=== PATIENT | female | born 1960 | race African-American/Black ===

== ENCOUNTER 2017-03-18 13:56 | Emergency (ER) | payer SELFPAY ==
[2017-03-18] MEDS ORDERED: MORPHINE SULFATE 2 MG/ML DISP.SYRIN. IV ONE (14:30)
[2017-03-18] MEDS ORDERED: FAMOTIDINE 20 MG/2 ML VIAL IVP ONE (14:30)
[2017-03-18] MEDS ORDERED: ONDANSETRON PF 4 MG/2 ML VIAL. IV ONE (14:30)
--- NOTE | 2017-03-18 14:36 | PHYS DOC ---
Past Medical History Past Medical History: Diverticulosis Past Surgical History: No Surgical History Alcohol Use: None Drug Use: None Adult General Chief Complaint Chief Complaint: ABDOMINAL PAIN HPI HPI Patient is a 56 year old female with a history of hypertension and diverticulosis presents to the ED complaining of abdominal pain x 2 days. Describes the pain as sharp. Rates the pain as 7/10. Associated symptoms include diarrhea. No blood in stools. Similar episodes of diarrhea in the past. No recent antibiotic use. Denies chest pain, shortness of breath, dizziness, weakness, blood in stool, headache, dizziness, weakness or rash. Review of Systems Review of Systems Constitutional: Denies fever or chills [] Eyes: Denies change in visual acuity, redness, or eye pain [] HENT: Denies nasal congestion or sore throat [] Respiratory: Denies cough or shortness of breath [] Cardiovascular: No additional information not addressed in HPI [] GI: Complains of abdominal pain and diarrhea. Denies nausea, vomiting, bloody stools. [] : Denies dysuria or hematuria [] Musculoskeletal: Denies back pain or joint pain [] Integument: Denies rash or skin lesions [] Neurologic: Denies headache, focal weakness or sensory changes [] Endocrine: Denies polyuria or polydipsia [] All other systems were reviewed and found to be within normal limits, except as documented in this note. Current Medications Current Medications Current Medications Medications (Trade) Dose Ordered Sig/Gallo Start Time Stop Time Status Last Admin Dose Admin Famotidine (Pepcid Vial) 20 mg 1X ONCE 03/18/17 14:30 03/18/17 14:31 DC 03/18/17 15:07 20 MG Iohexol (Omnipaque 300 Mg/ml) 75 ml 1X ONCE 03/18/17 14:45 03/18/17 14:46 DC Morphine Sulfate 2 mg 1X ONCE 03/18/17 14:30 03/18/17 14:31 Cancel Ondansetron HCl (Zofran) 4 mg 1X ONCE 03/18/17 14:30 03/18/17 14:31 DC 03/18/17 15:04 4 MG Potassium Chloride (Klor-Con) 40 meq 1X ONCE 03/18/17 15:45 03/18/17 15:46 DC 03/18/17 16:11 40 MEQ Allergies Allergies Allergies Coded Allergies Type Severity Reaction Last Updated Verified Penicillins Allergy Mild itching 08/14/14 Yes ciprofloxacin Allergy Mild itching 08/14/14 Yes erythromycin base Allergy Mild itching 08/14/14 Yes morphine Allergy Mild itching 08/14/14 Yes Physical Exam Physical Exam Constitutional: Well developed, well nourished, no acute distress, non-toxic appearance. [] HENT: Normocephalic, atraumatic, bilateral external ears normal, oropharynx moist, no oral exudates, nose normal. [] Eyes: PERRLA, EOMI, conjunctiva normal, no discharge. [] Neck: Normal range of motion, no tenderness, supple, no stridor. [] Cardiovascular:Heart rate regular rhythm, no murmur [] Lungs & Thorax: Bilateral breath sounds clear to auscultation [] Abdomen: Bowel sounds normal, soft, MILD DIFFUSE ABDOMINAL TENDERNESS, no masses , no pulsatile masses. [] Skin: Warm, dry, no erythema, no rash. [] Back: No tenderness, no CVA tenderness. [] Extremities: No tenderness, no cyanosis, no clubbing, ROM intact, no edema. [] Neurologic: Alert and oriented X 3, normal motor function, normal sensory function, no focal deficits noted. [] Psychologic: Affect normal, judgement normal, mood normal. [] Current Patient Data Vital Signs Vital Signs Date Time Temp Pulse Resp B/P (MAP) Pulse Ox O2 Delivery O2 Flow Rate FiO2 03/18/17 16:00 92 147/77 (100) 97 Room Air 03/18/17 14:12 98.7 22 98.7 Lab Values Laboratory Tests Test 03/18/17 14:25 03/18/17 15:15 Urine Collection Type Unknown Urine Color Yellow Urine Clarity Clear Urine pH 5.5 Urine Specific [place] 1.025 Urine Protein 100 mg/dL (NEG-TRACE) Urine Glucose (UA) Negative mg/dL (NEG) Urine Ketones (Stick) >=80 mg/dL (NEG) Urine Blood Negative (NEG) Urine Nitrite Negative (NEG) Urine Bilirubin Small (NEG) Urine Urobilinogen Dipstick 0.2 mg/dL (0.2 mg/dL) Urine Leukocyte Esterase Negative (NEG) Urine RBC 0 /HPF (0-2) Urine WBC 0 /HPF (0-4) Urine Squamous Epithelial Cells Few /LPF Urine Bacteria Few /HPF (0-FEW) Urine Mucus Marked /LPF White Blood Count 6.3 x10^3/uL (4.0-11.0) Red Blood Count 4.30 x10^6/uL (3.50-5.40) Hemoglobin 12.1 g/dL (12.0-15.5) Hematocrit 37.3 % (36.0-47.0) Mean Corpuscular Volume 87 fL (79-100) Mean Corpuscular Hemoglobin 28 pg (25-35) Mean Corpuscular Hemoglobin Concent 32 g/dL (31-37) Red Cell Distribution Width 14.5 % (11.5-14.5) Platelet Count 167 x10^3/uL (140-400) Sodium Level 139 mmol/L (136-145) Potassium Level 3.2 mmol/L (3.5-5.1) L Chloride Level 103 mmol/L (98-107) Carbon Dioxide Level 24 mmol/L (21-32) Anion Gap 12 (6-14) Blood Urea Nitrogen 10 mg/dL (7-20) Creatinine 0.7 mg/dL (0.6-1.0) Estimated GFR (Cockcroft-Gault) 104.4 BUN/Creatinine Ratio 14 (6-20) Glucose Level 85 mg/dL (70-99) Calcium Level 9.4 mg/dL (8.5-10.1) Total Bilirubin 0.7 mg/dL (0.2-1.0) Aspartate Amino Transferase (AST) 20 U/L (15-37) Alanine Aminotransferase (ALT) 24 U/L (14-59) Alkaline Phosphatase 83 U/L (46-116) Total Protein 8.5 g/dL (6.4-8.2) H Albumin 3.3 g/dL (3.4-5.0) L Albumin/Globulin Ratio 0.6 (1.0-1.7) L Lipase 98 U/L (73-393) Laboratory Tests 03/18/17 15:15 Laboratory Tests 03/18/17 15:15 EKG EKG [] Radiology/Procedures Radiology/Procedures [] Course & Med Decision Making Course & Med Decision Making Pertinent Labs and Imaging studies reviewed. (See chart for details) []Discussed labs with patient. Potassium given in ED. Patient refused CT imaging. Discussed risks. Patient verbalizes understanding. States same symptoms in the past. Medications in ED improved patient's pain and symptoms. On re-examination, abdomen is soft nontender nondistended. No peritoneal signs. Tolerating PO. No reported fever. Stool culture pending. Will discharge outpatient with Imodium, Zofran and Pepcid. Discussed follow-up with GI this week. Provided contact information/education. Discussed dietary changes. Discussed reasons to return to the ED. Patient understands and agrees with plan. Dragon Disclaimer Dragon Disclaimer This electronic medical record was generated, in whole or in part, using a voice recognition dictation system. Departure Departure Impression: Primary Impression: Acute diarrhea Disposition: HOME, SELF-CARE Condition: IMPROVED Referrals: NO PCP (PCP) DAYANA COBURN MD, SCOTT S MD Patient Instructions: Diarrhea Scripts Loperamide HCl (Imodium A-D) 2 Mg Capsule 2 MG PO DAILY for DIARRHEA, #10 CAP 2 tablet now and then 1 tablet after each loose stool. Max 4 tablets in 24 hours. Prov: JONATHON WILKS 03/18/17 Ondansetron (ZOFRAN ODT) 4 Mg Tab.rapdis 1 TAB SL Q8HRS, #10 TAB Prov: JONATHON WILKS 03/18/17 Famotidine (PEPCID) 20 Mg Tablet 20 MG PO BID, #20 TAB Prov: JONATHON WILKS 03/18/17 JONATHON WILKS Mar 18, 2017 14:36
[2017-03-18 14:41] LABS: BILIRUBIN,URINE SMALL (NEG); GLUCOSE,URINE NEGATIVE (NEG); NITRITE,URINE NEGATIVE (NEG); PH,URINE 5.5; PROTEIN,URINE 100 mg/dL (NEG-TRACE); UROBILINOGEN,URINE 0.2 mg/dL (0.2 mg/dL)
[2017-03-18] MEDS ORDERED: IOHEXOL 300 MG/ML 100ML VIAL. IV ONE (14:45)
[2017-03-18 15:01] LABS: RBC,URINE 0 /HPF (0-2); WBC,URINE 0 /HPF (0-4)
[2017-03-18 15:02] LABS: BACTERIA,URINE FEW /HPF (0-FEW); SQUAMOUS EPITHELIAL CELL,UR FEW /LPF
[2017-03-18 15:18] LABS: HEMATOCRIT 37.3 % (36.0-47.0); HEMOGLOBIN 12.1 g/dL (12.0-15.5); RED BLOOD COUNT 4.3 x10^6/uL (3.50-5.40); RED CELL DISTRIBUTION WIDTH 14.5 % (11.5-14.5); WHITE BLOOD COUNT 6.3 x10^3/uL (4.0-11.0)
[2017-03-18 15:28] LABS: CALCIUM 9.4 mg/dL (8.5-10.1); CREATININE 0.7 mg/dL (0.6-1.0); GFR 104.4; POTASSIUM 3.2 mmol/L (3.5-5.1)
[2017-03-18 15:36] LABS: ALBUMIN 3.3 g/dL (3.4-5.0); ALBUMIN/GLOBULIN RATIO 0.6 (1.0-1.7); TOTAL BILIRUBIN 0.7 mg/dL (0.2-1.0); TOTAL PROTEIN 8.5 g/dL (6.4-8.2)
[2017-03-18] MEDS ORDERED: POTASSIUM CHLORIDE 20 MEQ TABLET.ER. PO ONE (15:45)
[2017-03-18 16:00] VITALS: BP 147/77
[2017-03-18] MEDS ORDERED: ONDA4TAB10 SL (16:09)
[2017-03-18] MEDS ORDERED: FAMO-63 PO (16:09)
[2017-03-18] MEDS ORDERED: LOPE2CAP88 PO (16:09)
== END 2017-03-18 16:19 | disposition home or self-care (01) ==
LOC: ER 13:56
DX: A08.8 Other specified intestinal infections (principal); I10 Essential (primary) hypertension; R10.84 Generalized abdominal pain; Z88.0 Allergy status to penicillin; Z88.1 Allergy status to other antibiotic agents; Z88.5 Allergy status to narcotic agent
CPT/HCPCS: 36415; 80053; 81001; 83690; 85027; 87045; 96374; 96375; 99284; J2405; S0028; 99285-25

== ENCOUNTER 2017-06-20 08:52 | Inpatient (IN) | payer SELFPAY ==
[2017-06-20 09:34] LABS: BILIRUBIN,URINE SMALL (NEG); CLARITY,URINE CLEAR; GLUCOSE,URINE NEGATIVE (NEG); NITRITE,URINE NEGATIVE (NEG); PH,URINE 5.5; PROTEIN,URINE >=300 mg/dL (NEG-TRACE); UROBILINOGEN,URINE 0.2 mg/dL (0.2 mg/dL)
[2017-06-20 09:41] LABS: COLOR,URINE YELLOW
[2017-06-20 09:42] LABS: BACTERIA,URINE MANY /HPF (0-FEW); SQUAMOUS EPITHELIAL CELL,UR MANY /LPF
[2017-06-20 09:44] LABS: WBC,URINE OCC /HPF (0-4)
[2017-06-20 09:45] LABS: ADD MAN DIFF? NO
[2017-06-20 09:47] LABS: BASO % 0 % (0-3); EOS # 0.1 x10^3/uL (0.0-0.7); EOS % 1 % (0-3); HEMATOCRIT 38.5 % (36.0-47.0); HEMOGLOBIN 12.8 g/dL (12.0-15.5); LYMPH % 12 % (24-48); MEAN CORPUSCULAR HEMOGLOBIN 29 pg (25-35); MEAN CORPUSCULAR HGB CONC 33 g/dL (31-37); MEAN CORPUSCULAR VOLUME 86 fL (79-100); MONO # 0.9 x10^3/uL (0.0-1.1); MONO % 11 % (0-9); NEUT # 6.5 x10^3uL (1.8-7.7); NEUT % 76 % (31-73); PLATELET COUNT 156 x10^3/uL (140-400); RED BLOOD COUNT 4.47 x10^6/uL (3.50-5.40); RED CELL DISTRIBUTION WIDTH 14.8 % (11.5-14.5); WHITE BLOOD COUNT 8.5 x10^3/uL (4.0-11.0)
[2017-06-20] MEDS: IV NORMAL SALINE 1000ML BAG 1,000 ML IV ×2 (10:25→12:38)
[2017-06-20] MEDS: ONDANSETRON PF 4 MG/2 ML VIAL. IV (10:26)
[2017-06-20] MEDS: fentaNYL PF VIAL 100 MCG/2 ML VIAL IV (10:27)
[2017-06-20 10:33] LABS: ALBUMIN 3.5 g/dL (3.4-5.0); ALK PHOS 99 U/L (46-116); ALT (SGPT) 21 U/L (14-59); ANION GAP 12 (6-14); AST (SGOT) 17 U/L (15-37); BLOOD UREA NITROGEN 17 mg/dL (7-20); CALCIUM 9.9 mg/dL (8.5-10.1); CARBON DIOXIDE 26 mmol/L (21-32); CHLORIDE 101 mmol/L (98-107); CREATININE 1.3 mg/dL (0.6-1.0); DIRECT BILIRUBIN 0.3 mg/dL (0.0-0.2); GFR 51.1; GLUCOSE 105 mg/dL (70-99); LIPASE 86 U/L (73-393); POTASSIUM 3.6 mmol/L (3.5-5.1); SODIUM 139 mmol/L (136-145); TOTAL BILIRUBIN 1.2 mg/dL (0.2-1.0); TOTAL PROTEIN 9.6 g/dL (6.4-8.2)
[2017-06-20 10:35] LABS: LACTIC ACID 1.5 mmol/L (0.4-2.0)
[2017-06-20 10:41] LABS: TROPONINI 0.138 ng/mL (0.000-0.055)
[2017-06-20] MEDS: LABETALOL 20 MG/4 ML DISP.SYRIN. IVP (11:01)
[2017-06-20] MEDS: hydrALAZINE 20 MG/ML VIAL. IVP (11:42)
[2017-06-20] MEDS ORDERED: CONTRAST GIVEN MC (11:45)
[2017-06-20] MEDS: IOHEXOL 300 MG/ML 100ML VIAL. IV (11:45)
[2017-06-20] MEDS: ASPIRIN CHEWABLE 81 MG TABLET. PO (12:38)
[2017-06-20 16:32] LABS: TROPONINI 0.119 ng/mL (0.000-0.055)
[2017-06-20] MEDS: ACETAMINOPHEN 325 MG TABLET. PO (18:36)
[2017-06-20] MEDS: PANTOPRAZOLE 40 MG TABLET.DR. PO (18:37)
[2017-06-20] MEDS: FAMOTIDINE 20 MG TABLET. PO (18:37)
[2017-06-20 22:47] LABS: TROPONINI 0.091 ng/mL (0.000-0.055)
[2017-06-21 01:23] LABS: TROPONINI 0.054 ng/mL (0.000-0.055)
[2017-06-21 06:18] LABS: ADD MAN DIFF? NO; BASO % 1 % (0-3); EOS # 0.1 x10^3/uL (0.0-0.7); EOS % 2 % (0-3); HEMATOCRIT 33.7 % (36.0-47.0); HEMOGLOBIN 11.1 g/dL (12.0-15.5); LYMPH # 1.7 x10^3/uL (1.0-4.8); LYMPH % 33 % (24-48); MEAN CORPUSCULAR HEMOGLOBIN 28 pg (25-35); MEAN CORPUSCULAR HGB CONC 33 g/dL (31-37); MEAN CORPUSCULAR VOLUME 86 fL (79-100); MONO # 0.5 x10^3/uL (0.0-1.1); MONO % 10 % (0-9); NEUT # 2.9 x10^3uL (1.8-7.7); NEUT % 54 % (31-73); PLATELET COUNT 132 x10^3/uL (140-400); RED BLOOD COUNT 3.92 x10^6/uL (3.50-5.40); RED CELL DISTRIBUTION WIDTH 14.7 % (11.5-14.5); WHITE BLOOD COUNT 5.3 x10^3/uL (4.0-11.0)
[2017-06-21] MEDS: ONDANSETRON PF 4 MG/2 ML VIAL. IV ×2 (06:41→15:44)
[2017-06-21] MEDS: fentaNYL PF VIAL 100 MCG/2 ML VIAL IV (06:42)
[2017-06-21 06:43] LABS: ANION GAP 11 (6-14); BLOOD UREA NITROGEN 11 mg/dL (7-20); CALCIUM 8.9 mg/dL (8.5-10.1); CARBON DIOXIDE 26 mmol/L (21-32); CHLORIDE 107 mmol/L (98-107); CREATININE 0.7 mg/dL (0.6-1.0); GFR 104.4; GLUCOSE 73 mg/dL (70-99); POTASSIUM 3.3 mmol/L (3.5-5.1); SODIUM 144 mmol/L (136-145)
[2017-06-21] MEDS ORDERED: hydrALAZINE 20 MG/ML VIAL. IVP (08:30)
[2017-06-21] MEDS: PANTOPRAZOLE 40 MG TABLET.DR. PO (08:40)
[2017-06-21] MEDS: hydrALAZINE 25 MG TABLET PO ×3 (08:41→22:42)
[2017-06-21] MEDS: POTASSIUM CHLORIDE 20 MEQ TABLET.ER. PO (10:20)
[2017-06-21] MEDS: MAGNESIUM HYDROXIDE 2,400 MG/30 ML ORAL.SUSP. PO (15:43)
[2017-06-21] MEDS: SENNOSIDES/DOCUSATE 8.6/50MG TABLET. PO (21:00)
[2017-06-21] MEDS: DOCUSATE SODIUM 100 MG CAPSULE. PO (21:00)
[2017-06-21] MEDS: ENOXAPARIN 40 MG/0.4 ML SYRINGE. SQ (22:42)
[2017-06-21] MEDS: LOPERAMIDE 2 MG CAPSULE PO (23:34)
[2017-06-22 03:47] LABS: ADD MAN DIFF? NO
[2017-06-22 03:59] LABS: BASO % 0 % (0-3); EOS # 0.2 x10^3/uL (0.0-0.7); EOS % 4 % (0-3); HEMATOCRIT 31.8 % (36.0-47.0); HEMOGLOBIN 10.4 g/dL (12.0-15.5); LYMPH # 1.8 x10^3/uL (1.0-4.8); LYMPH % 38 % (24-48); MEAN CORPUSCULAR HEMOGLOBIN 29 pg (25-35); MEAN CORPUSCULAR HGB CONC 33 g/dL (31-37); MEAN CORPUSCULAR VOLUME 87 fL (79-100); MONO # 0.6 x10^3/uL (0.0-1.1); MONO % 13 % (0-9); NEUT # 2.1 x10^3uL (1.8-7.7); NEUT % 45 % (31-73); PLATELET COUNT 120 x10^3/uL (140-400); RED BLOOD COUNT 3.65 x10^6/uL (3.50-5.40); RED CELL DISTRIBUTION WIDTH 14.5 % (11.5-14.5); WHITE BLOOD COUNT 4.6 x10^3/uL (4.0-11.0)
[2017-06-22 04:44] LABS: ANION GAP 7 (6-14); BLOOD UREA NITROGEN 10 mg/dL (7-20); CARBON DIOXIDE 31 mmol/L (21-32); CHLORIDE 108 mmol/L (98-107); CREATININE 0.8 mg/dL (0.6-1.0); GFR 89.5; GLUCOSE 86 mg/dL (70-99); POTASSIUM 3.6 mmol/L (3.5-5.1); SODIUM 146 mmol/L (136-145)
[2017-06-22] MEDS: DOCUSATE SODIUM 100 MG CAPSULE. PO (08:36)
[2017-06-22] MEDS: ENOXAPARIN 40 MG/0.4 ML SYRINGE. SQ (08:36)
[2017-06-22] MEDS: hydrALAZINE 25 MG TABLET PO ×2 (08:36→14:20)
[2017-06-22] MEDS: SENNOSIDES/DOCUSATE 8.6/50MG TABLET. PO (08:36)
[2017-06-22] MEDS: PANTOPRAZOLE 40 MG TABLET.DR. PO (08:36)
[2017-06-22] MEDS ORDERED: NYSTATIN TOPICAL POWDER 15GM BOTTLE. TP (14:30)
== END 2017-06-22 17:56 | disposition home or self-care (01) | DRG 682 ==
LOC: 2 SOUTH 06-21 11:20 → ER 08:52 → 1 WEST ICU 12:14
DX: N17.9 Acute kidney failure, unspecified (principal); I21.A1 Myocardial infarction type 2; E88.89 Other specified metabolic disorders; Z68.43 Body mass index [BMI] 50.0-59.9, adult; E66.01 Morbid (severe) obesity due to excess calories; N13.2 Hydronephrosis with renal and ureteral calculous obstruction; E87.6 Hypokalemia; I10 Essential (primary) hypertension; K57.90 Diverticulosis of intestine, part unspecified, without perforation or abscess without bleeding; K21.9 Gastro-esophageal reflux disease without esophagitis; Z82.49 Family history of ischemic heart disease and other diseases of the circulatory system; Z87.442 Personal history of urinary calculi; Z88.5 Allergy status to narcotic agent; Z90.710 Acquired absence of both cervix and uterus
CPT/HCPCS: 36415; 74177; 80048; 80076; 81001; 83605; 83690; 84484; 85025; 87086; 93005; 93306; 96361; 96374; 96375; 99291; 99291-25; J0360; J1650; J2405; J3010; J3490; J7030; J7050; Q9967

== ENCOUNTER 2018-05-20 14:19 | Emergency (ER) | payer SELFPAY ==
[~2018-05-20] VITALS: Ht 170.2 cm; Wt 140.2 kg
[~2018-05-20 14:19] MED LIST: FAMO-63 PO; HYDR-2868 PO; LOPE2CAP88 PO; ONDA4TAB10 SL
--- NOTE | 2018-05-20 14:42 | PHYS DOC ---
Past Medical History Past Medical History: Diverticulosis, High Cholesterol, Hypertension Additional Past Medical Histor: GALLSTONES Past Medical History Chronic venous stasis Past Surgical History: Hysterectomy Smoking: Cigarettes (The patient is a nonsmoker.) Alcohol Use: None Drug Use: None Adult General Chief Complaint Chief Complaint: CHEST PAIN HPI HPI Patient is a 57-year-old female who presents to the emergency department for evaluation. She states for the past 3 days, she has had a cough, productive of some whitish sputum. She also reports some left-sided chest soreness with coughing primarily, her chest pain lasting a few seconds usually associated with cough. She has not had any pleuritic pain or exertional pain. She has not had constant ongoing pain. She denies any prior cardiac history. Cardiac risk factors include a history of hypertension, hyperlipidemia, and obesity. The patient states she does take losartan for blood pressure but did not take her blood pressure medication today. She is noted to be hypertensive. Other than the stated above, there are no alleviating or exacerbating factors to the patient's symptoms. Her HEART score is a 3, assuming a negative troponin. Review of Systems Review of Systems Constitutional: Denies fever or chills [] Eyes: Denies change in visual acuity, redness, or eye pain [] HENT: Denies nasal congestion or sore throat [] Respiratory: Denies pleuritic chest pain or shortness of breath [] Cardiovascular: No additional information not addressed in HPI [] GI: Denies abdominal pain, nausea, vomiting, bloody stools or diarrhea [] : Denies dysuria or hematuria [] Musculoskeletal: Denies back pain or joint pain [] Integument: Denies rash or skin lesions [] Neurologic: Denies headache, focal weakness or sensory changes [] Endocrine: Denies polyuria or polydipsia [] All other systems were reviewed and found to be within normal limits, except as documented in this note. Current Medications Current Medications Current Medications Medications (Trade) Dose Ordered Sig/Gallo Start Time Stop Time Status Last Admin Dose Admin Aspirin (Children'S Aspirin) 324 mg 1X ONCE 05/20/18 14:45 05/20/18 14:46 DC 05/20/18 15:27 324 MG Losartan Potassium (Cozaar) 25 mg DAILY 05/20/18 15:15 05/20/18 15:28 25 MG Allergies Allergies Allergies Coded Allergies Type Severity Reaction Last Updated Verified Penicillins Allergy Mild itching 08/14/14 Yes ciprofloxacin Allergy Mild itching 08/14/14 Yes erythromycin base Allergy Mild itching 08/14/14 Yes hydrochlorothiazide Allergy Mild RASH 06/21/17 Yes morphine Allergy Mild itching 08/14/14 Yes amlodipine Allergy Unknown 06/21/17 Yes lisinopril Allergy Unknown 06/21/17 Yes Physical Exam Physical Exam PHYSICAL EXAM: CONSTITUTIONAL: Well developed, well nourished HEAD: normocephalic, atraumatic EENT: PERRL, EOMI. Conjunctivae normal color, sclerae non-icteric; moist mucous membranes. NECK: Supple, non-tender; no meningismus. LUNGS: Lungs CTA, breathing even and unlabored. Normal air movement. HEART: Regular rate and rhythm, no murmur CHEST: No deformity; is tenderness to palpation to the anterior left chest wall , which reproduces the patient's pain. ABDOMEN: The abdomen is soft, and non-tender, no masses or bruits. EXTREM: Normal ROM; no deformity, no calf tenderness. Normal pulses palpable in all extremities. There is significant bilateral pedal edema, consistent with patient's history of chronic venous stasis.. SKIN: No rash; no diaphoresis NEURO: Alert; normal speech and cognition; CN's grossly intact; strength grossly intact without focal deficit. BACK: No CVA TTP. Current Patient Data Vital Signs Vital Signs Date Time Temp Pulse Resp B/P (MAP) Pulse Ox O2 Delivery O2 Flow Rate FiO2 05/20/18 15:28 87 188/81 05/20/18 14: 97.8 20 97 Room Air 97.8 Lab Values Laboratory Tests Test 05/20/18 14:40 05/20/18 16:23 White Blood Count 3.2 x10^3/uL (4.0-11.0) L Red Blood Count 4.46 x10^6/uL (3.50-5.40) Hemoglobin 12.7 g/dL (12.0-15.5) Hematocrit 38.7 % (36.0-47.0) Mean Corpuscular Volume 87 fL (79-100) Mean Corpuscular Hemoglobin 28 pg (25-35) Mean Corpuscular Hemoglobin Concent 33 g/dL (31-37) Red Cell Distribution Width 14.5 % (11.5-14.5) Platelet Count 149 x10^3/uL (140-400) Neutrophils (%) (Auto) 36 % (31-73) Lymphocytes (%) (Auto) 40 % (24-48) Monocytes (%) (Auto) 20 % (0-9) H Eosinophils (%) (Auto) 3 % (0-3) Basophils (%) (Auto) 1 % (0-3) Neutrophils # (Auto) 1.1 x10^3uL (1.8-7.7) L Lymphocytes # (Auto) 1.3 x10^3/uL (1.0-4.8) Monocytes # (Auto) 0.6 x10^3/uL (0.0-1.1) Eosinophils # (Auto) 0.1 x10^3/uL (0.0-0.7) Basophils # (Auto) 0.0 x10^3/uL (0.0-0.2) Segmented Neutrophils % 43 % (35-66) Lymphocytes % 38 % (24-48) Monocytes % 17 % (0-10) H Eosinophils % 2 % (0-5) Toxic Granulation Slight Toxic Vacuolation Slight Platelet Estimate Adequate (ADEQUATE) Large Platelets Occ Prothrombin Time 13.7 SEC (11.7-14.0) Prothrombin Time INR 1.1 (0.8-1.1) Sodium Level 139 mmol/L (136-145) Potassium Level 3.6 mmol/L (3.5-5.1) Chloride Level 101 mmol/L (98-107) Carbon Dioxide Level 28 mmol/L (21-32) Anion Gap 10 (6-14) Blood Urea Nitrogen 13 mg/dL (7-20) Creatinine 0.7 mg/dL (0.6-1.0) Estimated GFR (Cockcroft-Gault) 104.0 BUN/Creatinine Ratio 19 (6-20) Glucose Level 93 mg/dL (70-99) Calcium Level 9.5 mg/dL (8.5-10.1) Total Bilirubin 0.6 mg/dL (0.2-1.0) Aspartate Amino Transferase (AST) 21 U/L (15-37) Alanine Aminotransferase (ALT) 17 U/L (14-59) Alkaline Phosphatase 100 U/L (46-116) Creatine Kinase 118 U/L (26-192) Creatine Kinase MB (Mass) 0.5 ng/mL (0.0-3.6) Creatine Kinase MB Relative Index 0.4 % (0-4) Troponin I Quantitative < 0.017 ng/mL (0.000-0.055) < 0.017 ng/mL (0.000-0.055) [id number]-Type Natriuretic Peptide 52 pg/mL (0-124) Total Protein 9.0 g/dL (6.4-8.2) H Albumin 3.4 g/dL (3.4-5.0) Albumin/Globulin Ratio 0.6 (1.0-1.7) L Lipase 102 U/L (73-393) Laboratory Tests 05/20/18 14:40 Laboratory Tests 05/20/18 14:40 EKG EKG [Normal sinus rhythm with a normal rate, normal axis, normal intervals, there are no acute ischemic ST/T changes.] Repeat EKG, done at 3:46 PM shows normal sinus rhythm at a rate of 87 beats for minute, normal axis, QTC 471 ms with otherwise normal intervals. There are no acute ischemic ST/T changes. Radiology/Procedures Radiology/Procedures [PROCEDURE: CHEST PA & LATERAL Chest, PA and Lateral: Technique: PA and lateral views of the chest were obtained. History: Cough, chest pain. Comparison: None. Findings: The heart and pulmonary vasculature appear within normal limits. The lungs are clear. The pleural margins are clear. Mild degenerative changes thoracic spine. Impression: No acute chest process is seen. ] Course & Med Decision Making Course & Med Decision Making Pertinent Labs and Imaging studies reviewed. (See chart for details) [5:10 PM: The patient's condition remained stable. Clinical suspicion for acute coronary syndrome is extremely low at this time. I discussed the importance of close follow-up with her PCP, return precautions, compliance with her blood pressure medication, and prescription for antitussive medication, and the use of [id number] analgesics for her pain. The patient states she tries to limit the use of NSAIDs, and I recommended Tylenol instead. The patient did request antibiotics, but I instructed the patient and I do not feel that there is an indication for antibiotics at this time, as there is no evidence for bacterial infection. Dragon Disclaimer Dragon Disclaimer This electronic medical record was generated, in whole or in part, using a voice recognition dictation system. Departure Departure Impression: Primary Impression: Cough Additional Impression: Atypical chest pain Disposition: 01 HOME, SELF-CARE Condition: STABLE Patient Instructions: Chest Pain (Nonspecific), Chest Wall Pain, Cough, Adult, Musculoskeletal Pain Scripts Benzonatate (TESSALON PERLE) 100 Mg Capsule 100 MG PO TID PRN for COUGH, #20 CAP Prov: WANDA CARD MD 05/20/18 Problem Qualifiers WANDA CARD MD May 20, 2018 14:42
--- NOTE | 2018-05-20 14:50 | EKG ---
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
[2018-05-20 14:53] LABS: BASO % 1 % (0-3); EOS # 0.1 x10^3/uL (0.0-0.7); EOS % 3 % (0-3); HEMATOCRIT 38.7 % (36.0-47.0); HEMOGLOBIN 12.7 g/dL (12.0-15.5); LYMPH # 1.3 x10^3/uL (1.0-4.8); LYMPH % 40 % (24-48); MEAN CORPUSCULAR HEMOGLOBIN 28 pg (25-35); MEAN CORPUSCULAR HGB CONC 33 g/dL (31-37); MEAN CORPUSCULAR VOLUME 87 fL (79-100); MONO # 0.6 x10^3/uL (0.0-1.1); MONO % 20 % (0-9); NEUT # 1.1 x10^3uL (1.8-7.7); NEUT % 36 % (31-73); PLATELET COUNT 149 x10^3/uL (140-400); RED BLOOD COUNT 4.46 x10^6/uL (3.50-5.40); RED CELL DISTRIBUTION WIDTH 14.5 % (11.5-14.5); WHITE BLOOD COUNT 3.2 x10^3/uL (4.0-11.0)
--- NOTE | 2018-05-20 15:03 | RAD ---
Chest, PA and Lateral: Technique: PA and lateral views of the chest were obtained. History: Cough, chest pain. Comparison: None. Findings: The heart and pulmonary vasculature appear within normal limits. The lungs are clear. The pleural margins are clear. Mild degenerative changes thoracic spine. Impression: No acute chest process is seen. Electronically signed by: Chuckie Morales MD (05/20/2018 2:58 PM) [id number]
[2018-05-20 15:06] LABS: CALCIUM 9.5 mg/dL (8.5-10.1); CREATININE 0.7 mg/dL (0.6-1.0); POTASSIUM 3.6 mmol/L (3.5-5.1)
[2018-05-20 15:07] LABS: ALBUMIN 3.4 g/dL (3.4-5.0); ALBUMIN/GLOBULIN RATIO 0.6 (1.0-1.7); TOTAL BILIRUBIN 0.6 mg/dL (0.2-1.0)
[2018-05-20 15:14] LABS: PROTHROMBIN TIME PATIENT 13.7 SEC (11.7-14.0)
[2018-05-20] MEDS ORDERED: LOSARTAN POTASSIUM 50 MG TABLET. PO SCH (15:15)
[2018-05-20] MEDS: ASPIRIN CHEWABLE 81 MG TABLET. PO ONE (15:27)
[2018-05-20] MEDS: LOSARTAN POTASSIUM 25 MG TABLET. PO SCH (15:28)
[2018-05-20 16:01] LABS: % EOS 2 % (0-5); % LYMPHS 38 % (24-48); % MONOS 17 % (0-10); % SEGS 43 % (35-66)
[2018-05-20 16:02] LABS: PLT ESTIMATE ADEQUATE (ADEQUATE); TOXIC GRANULATION SLIGHT; TOXIC VACUOLATION SLIGHT
--- NOTE | 2018-05-20 16:28 | EKG ---
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
[2018-05-20 17:00] VITALS: BP 203/75
[2018-05-20] MEDS ORDERED: BENZ100C PO (17:16)
== END 2018-05-20 17:45 | disposition home or self-care (01) ==
LOC: ER 14:19
DX: R07.89 Other chest pain (principal); R05 Cough; E78.00 Pure hypercholesterolemia, unspecified; I10 Essential (primary) hypertension; R60.0 Localized edema; F17.210 Nicotine dependence, cigarettes, uncomplicated; E78.5 Hyperlipidemia, unspecified; E66.9 Obesity, unspecified; Z68.42 Body mass index [BMI] 45.0-49.9, adult; Z90.710 Acquired absence of both cervix and uterus; Z88.0 Allergy status to penicillin; Z88.1 Allergy status to other antibiotic agents; Z88.5 Allergy status to narcotic agent; Z88.8 Allergy status to other drugs, medicaments and biological substances
CPT/HCPCS: 36415; 71046; 80053; 82553; 83690; 83880; 84484; 85007; 85025; 85610; 93005; 99284-25